=== PATIENT | male | born 1960 | race Caucasian/White ===

== ENCOUNTER → 2023-02-14 | Outpatient (CLI) | payer OTHER ==
[~2023-02-14] MED LIST: ASPIRIN81 M1 PO; ATENOLOL25 MG PO; LOSARTAN POTASS50 M1 PO; NIACIN500 M6 PO; PRAVASTATIN SOD40 MG PO
== END | disposition home or self-care (01) ==
LOC: CT 13:08
PROVIDERS: ATTEND Specialist
DX: J34.1 Cyst and mucocele of nose and nasal sinus (principal); H90.3 Sensorineural hearing loss, bilateral